=== PATIENT | male | born 1960 | race Caucasian/White ===

== ENCOUNTER 2021-09-27 01:15 | Day surgery (SDC) | payer BC, SELFPAY ==
[2021-09-14 15:12] VITALS: BMI 25.1
[2021-09-27 08:14] VITALS: BP 122/76; PULSE 79; RESP 18; TEMP 36.7; O2SAT 100; BMI 25.3
[2021-09-27] MEDS: LACTATED RINGERS 1,000 ML 150 ML IV CONT (08:32)
--- NOTE | 2021-09-27 08:54 | P.HP_ITS ---
History of Present Illness History of Present Illness Consent: Risks, benefits, and alternatives have been discussed and questions answered. Patient agrees to proceed with procedure. Chief complaint: neoplasm screening Narrative: Declan Ravi is a 61 year old male Referred for colon cancer screening Review of Systems Review of Systems: All systems reviewed & are unremarkable except as noted in HPI and below [facility] Social History Social History Smoking status: Never smoker Substance use: never Substance use type: does not use Living arrangements: with family Gender identity (if verbalized by the patient): Male Spiritual care concerns: No Meds Home Medications and Allergies Home Medications Medication Instructions Recorded Confirmed Type atorvastatin 5 mg PO DAILY 09/14/21 09/27/21 History Allergies Allergy/AdvReac Type Severity Reaction Status Date / Time No Known Allergies Allergy Mild Verified 09/27/21 08:22 Vital Signs Vital Signs - 24 hr 09/27/21 08:14 Temperature 36.7 C Pulse Rate 79 Respiratory Rate 18 Blood Pressure 122/76 Pulse Oximetry 100 Exam Resp: Auscultation: clear to auscultation bilaterally Cardio: Rate: regular rate Rhythm: regular rhythm GI: GI Palp: Yes Soft to palpation and No Tenderness to palpation present (GI) Assessment and Plan Assessment and plan (1) Colon cancer screening: Code(s): Z12.11 - Encounter for screening for malignant neoplasm of colon Status: Acute Assessment and Plan: Colonoscopy with possible biopsy or polypectomy or cautery or injection of substances.
--- NOTE | 2021-09-27 09:02 | WPDANESEPPF ---
Anes - Initial Pre Proc Eval Procedure: Operation Date: 09/27/21 09:30 Proposed Procedures p Screening Colonoscopy - Lavell Ramon MD Date/Time: 09/27/21 09:02 Surgeon: Lavell Ramon MD Pre Op Diagnosis: neoplasm screening Patient Data Age: 61 Gender: M Height: 1.83 m Weight: 84.8 kg Last Vital Signs Temp 36.7 C 09/27/21 08:14 Pulse 79 09/27/21 08:14 Resp 18 09/27/21 08:14 BP 122/76 09/27/21 08:14 Pulse Ox 100 09/27/21 08:14 Allergies Allergy/AdvReac Type Severity Reaction Status Date / Time No Known Allergies Allergy Mild Verified 09/27/21 08:22 Home Medications Medication Instructions Recorded Confirmed Type atorvastatin 5 mg PO DAILY 09/14/21 09/27/21 History Patient hx anesthesia problems: none Family hx anesthesia problems: none Results Review: All pre-operative results and documents have been reviewed as part of the pre-operative evaluation. [facility] Past Medical History Medical History Hypertension Social History Social History Smoking status: Never smoker Substance use: never Substance use type: does not use Living arrangements: with family Gender identity (if verbalized by the patient): Male Spiritual care concerns: No Anes - Eval Final PreProcedure Day of Procedure 09/27/21 09:02 Patient weight: normal Heart: regular rate and rhythm Lungs: clear to auscultation Airway: Mallampati scale class II Neurological: alert and oriented Last oral intake: >/= 8 hours ASA classification: II Emergent: no Anesthetic plan: proceed Anesthesia type and monitoring: general GIVS and standard monitoring Results Review: All pre-operative results and documents have been reviewed as part of the pre-operative evaluation. Informed Consent: The patient's anesthetic plan and its attendant risks and benefits were discussed with the patient/family/POA. Questions were solicited and answers provided to the satisfaction of the patient/family/POA.
[2021-09-27 09:43] VITALS: BP 100/66; PULSE 60; RESP 14; O2SAT 99
[2021-09-27 09:53] VITALS: BP 102/61; PULSE 60; RESP 14; O2SAT 100
[2021-09-27 10:03] VITALS: BP 115/74; PULSE 60; RESP 19; O2SAT 100
== END 2021-09-27 10:12 | disposition home or self-care (01) ==
PROVIDERS: PCP Family Medicine; Visit Provider Internal Medicine Gastroenterology
PROC: 0DJD8ZZ Inspection of Lower Intestinal Tract, Via Natural or Artificial Opening Endoscopic (ICD-10-PCS; CPT 45378; principal; 2021-09-27 09:30)
DX: Z12.11 Encounter for screening for malignant neoplasm of colon (principal); K57.30 Diverticulosis of large intestine without perforation or abscess without bleeding
CPT/HCPCS: 45378; J2704; J7120

== ENCOUNTER 2023-08-17 23:30 | Observation (INO) | payer BC, SELFPAY ==
--- NOTE | ~2023-08-17 | XR_ITS ---
EXAMINATION: XR chest 1V portable Exam Date/Time: 08/18/2023 16:06 VAULT TELLER HISTORY: Atrial fibrillation Comparison: 03/05/2013. RESULT: Lines, tubes, and devices: None. Lungs and pleura: Streaky bibasilar scar/atelectasis, otherwise clear. Cardiomediastinal silhouette: Stable. Other: No acute osseous or upper abdominal finding. IMPRESSION: No acute cardiopulmonary process. Reviewed, dictated and finalized at location K. T TELLER
[2023-08-17 23:33] VITALS: BP 140/88; PULSE 92; RESP 16; TEMP 36.4; O2SAT 100
--- NOTE | 2023-08-17 23:37 | ECG_ITS ---
Measurements Intervals [place] Rate: 131 P: ME: 0 QRS: 75 QRSD: 126 T: 30 QT: 315 QTc: 466 Interpretive Statements ATRIAL FIBRILLATION WITH RAPID VENTRICULAR RESPONSE POSSIBLE RIGHT VENTRICULAR CONDUCTION DELAY [RSR (QR) IN V1/V2] ABNORMAL ECG NO PREVIOUS ECG AVAILABLE FOR COMPARISON Electronically Signed On 08-18-2023 18:17:58 STRUCTURAL STEEL WORKER HELPER by Anuj Guzmán M.D.
[2023-08-18] VITALS (42 sets, daily range): BP systolic 96–176; BP diastolic 60–143; PULSE 53–147; RESP 11–25; TEMP 36.7–37.6; O2SAT 95–100; BMI 24.7
[2023-08-18 00:01] LABS: Basophils Absolute Auto 0.1 K/mm3 (0.0-0.1); Basophils Percent Auto 0.6 % (0.2-1.2); Eosinophils Absolute Auto 0.2 K/mm3 (0-0.3); Eosinophils Percent Auto 2.7 % (0-4.4); Hematocrit 41.6 % (42.0-52.0); Hemoglobin 13.9 g/dL (14.0-18.0); Immature Granulocyte Absolute 0.01 K/mm3 (0.00-0.031); Immature Granulocyte Percent A 0.1 % (0-0.5); Lymphocytes Absolute Auto 2.61 K/mm3 (0.9-3.2); Lymphocytes Percent Auto 33.5 % (18.3-44.2); Mean Corpuscular HGB Conc 33.4 g/dl (32-36); Mean Corpuscular Hemoglobin 29.6 pg (26-34); Mean Corpuscular Volume 88.7 fl (80-100); Mean Platelet Volume 10.7 fl (7.4-10.4); Monocytes Absolute Auto 0.9 K/mm3 (0.1-0.6); Monocytes Percent Auto 11.2 % (2.6-8.5); Neutrophils Absolute Auto 4.1 K/mm3 (1.3-6.7); Neutrophils Percent Auto 51.9 % (45.5-73.1); Platelet Count Result 220 k/mm3 (150-375); Red Blood Count 4.69 M/mm3 (4.6-6.20); Red Cell Distribution Width 13.5 % (11.5-14.5); White Blood Count 7.8 K/mm3 (4.5-10.0)
[2023-08-18] MEDS: SODIUM CHLORIDE 0.9% IV 2,000 ML 999 ML IV CONT (00:13)
[2023-08-18] MEDS: dilTIAZem HCl INJ 25 MG/5 ML VIAL 10 MG IV PUSH ×2 (00:14→01:25)
[2023-08-18 00:16] LABS: Alanine Aminotransferase 34 U/L (6-50); Albumin Level 4.4 g/dL (3.5-5.1); Alkaline Phosphatase 73 U/L (38-126); Anion Gap 6 mmol/L (8-16); Aspartate Amino Transferase 37 U/L (17-59); Bilirubin,Total 0.4 mg/dL (0.2-1.3); Blood Urea Nitrogen 16 mg/dL (9-20); Calcium 9.3 mg/dL (8.4-10.2); Carbon Dioxide 31 mmol/L (22-30); Chloride 105 mmol/L (98-107); Estimated CRCL calculation 82 ml/min; Estimated Glomerular Filt Rate > 60; Glucose 85 mg/dL (65-110); Lipase 166 U/L (23-300); Potassium 3.9 mmol/L (3.4-5.0); Prothrombin Time 13.5 Seconds (11.1-14.7); Sodium 142 mmol/L (137-145)
[2023-08-18 00:17] LABS: Partial Thromboplastin Time 27.9 SECONDS (22.3-36.8)
[2023-08-18 00:28] LABS: Troponin I < 0.012 ng/mL (0.000-0.034)
--- NOTE | 2023-08-18 00:30 | ED.GENADULT ---
HPI - General Adult General Chief complaint: Arrhythmia/Palpitations Stated complaint: palpitations Time Seen by Provider: 08/17/23 23:53 History of Present Illness HPI narrative: This is a healthy 63-year-old male presenting ED with chief complaint of palpitations. Patient says they been on off for the last 10 days but became acutely worse tonight. He says he feels like he has 2 heart is beating in his chest. He did have 1 episode of dizziness but has no other complaints. No chest pain difficulty breathing lower extremity edema, fever chills nausea vomiting diarrhea. Related Data Home Medications Medication Instructions Recorded Confirmed atorvastatin 10 mg tablet 5 mg PO DAILY 09/14/21 09/27/21 Allergies Allergy/AdvReac Type Severity Reaction Status Date / Time No Known Allergies Allergy Mild Verified 09/27/21 08:22 [facility] Social History Social History Smoking status: Never smoker Substance use: never Substance use type: does not use Living arrangements: with family Gender identity (if verbalized by the patient): Male Spiritual care concerns: No Exam Narrative: APPEARANCE: No apparent distress. Head: atraumatic. EYES: EOMI, NOSE: Atraumatic NECK: Trachea midline RESPIRATORY: No increased rate of breathing , clear to auscultation CARDIOVASCULAR: irregular, tachycardic, no edema ABDOMINAL: Non-distended MUSCULOSKELETAl: No obvious deformities NEURO: Alert. Moving 4/4 extremities SKIN:: Warm, dry. Normal color PSYCHIATRIC: Normal affect Course Vital Signs Vital signs: Vital Signs Temperature 97.6 F 08/17/23 23:33 Pulse Rate 92 08/17/23 23:33 Respiratory Rate 16 08/17/23 23:33 Blood Pressure 140/88 08/17/23 23:33 Pulse Oximetry 100 08/17/23 23:33 Oxygen Delivery Room Air 08/17/23 23:33 Temperature 97.6 F 08/17/23 23:33 Pulse Rate 134 H 08/18/23 02:38 Respiratory Rate 20 08/18/23 02:22 Blood Pressure 108/74 08/18/23 02:38 Pulse Oximetry 99 08/18/23 02:22 Oxygen Delivery Room Air 08/17/23 23:33 Medical Decision Making MDM Narrative Medical decision making narrative: -Course: 63-year-old male presenting with palpitations. Finding AFib with RVR. Given 10 mg diltiazem x2 and started on diltiazem drip. CHADSVASC 0. Given aspirin. Patient will be admitted to the hospital for further management KATHE<sub>2</sub>DS<sub>2</sub>-VASc Score for Atrial Fibrillation Stroke Risk from [employer] on 08/18/2023 All calculations should be rechecked by clinician prior to use RESULT SUMMARY: INPUTS: Age ?> 0 = <65 Sex ?> 0 = Male CHF history ?> 0 = No Hypertension history ?> 0 = No Stroke/TIA/thromboembolism history ?> 0 = No Vascular disease history (prior RI, peripheral artery disease, or aortic plaque) ?> 0 = No Diabetes history ?> 0 = No -DDX includes but is not limited to: paroxysmal AFib, SVT, anxiety -Co-morbidities complicating care: none -Social determinants of health: 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 Independent EKG interpretation: Rhythm a-fib, Rate [131], [place] -[normal], [place] -none, QRS [narrow], QTC [normal], T waves -[negative for concerning inversions], ST Segments - [Negative for concerning elevations] Final interpretations: AFib -Interventions: 2 L normal saline, 10 diltiazem mg x2, Diltiazem drip, 325 aspirin -Shared decision making / Disposition: Admitted Vital Signs Vital Signs: Vital Signs Temperature 97.6 F 08/17/23 23:33 Pulse Rate 92 08/17/23 23:33 Respiratory Rate 16 08/17/23 23:33 Blood Pressure 140/88 08/17/23 23:33 Pulse Oximetry 100 08/17/23 23:33 Oxygen Delivery Room Air 08/17/23 23:33 Temperature 97.6 F 08/17/23 23:33 Pulse Rate 134 H 08/18/23 02:38 Respiratory Rate 20 08/18/23 02:22 Blood Pressure 108/74 08/18/23 02:38 Pulse Oximetry 99 08/18/23 02:22
[2023-08-18] MEDS: dilTIAZem 100 MG/100 ML 100 MG/100 ML BAG IV CONT (01:48)
--- NOTE | 2023-08-18 03:03 | PC.NURSE ---
Report received from RAYNA Malloy. Assumed care of patient at this time.
[2023-08-18] MEDS: ASPIRIN 81 MG CHEWABLE TABLET 324 MG PO (03:05)
[2023-08-18 03:29] LABS: Troponin I < 0.012 ng/mL (0.000-0.034)
--- NOTE | 2023-08-18 04:10 | PC.NURSE ---
This patient, Declan Ravi, was admitted to IMU status, and placed in Intensive Care Unit-5. Patient/family oriented to hospital policies and general routines including ID bracelet, bed and alarms, visiting hours, pain management, procedures, bathroom and other care routines, personal items, smoking policy, room service/diet, and visiting hours. Valuables list has been completed. Information on how to activate the Rapid Response Team has been discussed. Patient/Family are encouraged to report perceived risks to care and to ask questions if they do not understand what they are told or what they should do.
--- NOTE | 2023-08-18 04:33 | PM.IMHP ---
H&P: HPI History of Present Illness Date/Time: 08/18/23 04:33 Chief Complaint: Palpitations. This is a 63-year-old male patient with past medical history of hyperlipidemia who came to the emergency room complaining of palpitations off and on for last 2 weeks. Patient became acutely worse tonight.. He felt like his heart is beating in his chest and had 1 episode of dizziness. Patient is awake alert not in acute distress. Denies any fever chills chest pain cough shortness of bread nausea vomiting diarrhea dysuria muscle and joint pains. Vital signs in the emergency room was stable except for pulse of 134 beats per minute. CBC CMP were mainly in rate. Troponin 14 unremarkable. Lipase of unremarkable. EKG showed atrial fibrillation with rapid ventricular rate. Patient was started on Cardizem drip in the emergency room. Review of Systems Review of Systems: A 12 point review of system is done and is only positive what is dictated in the history of present illness. [facility] Social History Social History Smoking status: Never smoker Substance use: never Substance use type: does not use Living arrangements: with family Gender identity (if verbalized by the patient): Male Spiritual care concerns: No Meds Home Medications and Allergies Home Medications Medication Instructions Recorded Confirmed Type atorvastatin 10 mg tablet 5 mg PO DAILY 09/14/21 08/18/23 History Allergies Allergy/AdvReac Type Severity Reaction Status Date / Time No Known Allergies Allergy Mild Verified 09/27/21 08:22 Vital Signs Vital Signs - 24 hr 08/17/23 23:33 08/18/23 00:06 08/18/23 00:52 Temperature 97.6 F Pulse Rate 92 121 H 130 H Respiratory Rate 16 19 18 Blood Pressure 140/88 128/95 H 132/85 Pulse Oximetry 100 99 99 Oxygen Delivery Room Air 08/18/23 01:29 08/18/23 01:48 08/18/23 02:09 Temperature Pulse Rate 137 H 125 H 126 H Respiratory Rate 18 Blood Pressure 146/84 H 130/83 132/86 Pulse Oximetry 99 Oxygen Delivery 08/18/23 02:22 08/18/23 02:38 08/18/23 03:02 Temperature Pulse Rate 93 134 H 95 Respiratory Rate 20 17 Blood Pressure 118/77 108/74 122/88 Pulse Oximetry 99 100 Oxygen Delivery 08/18/23 00:20 08/18/23 00:30 08/18/23 00:45 Temperature Pulse Rate 127 H 125 H 72 Respiratory Rate 20 19 15 Blood Pressure Pulse Oximetry 98 99 99 Oxygen Delivery 08/18/23 01:00 08/18/23 01:15 08/18/23 01:17 Temperature Pulse Rate 122 H 87 95 Respiratory Rate 25 H 16 17 Blood Pressure 146/84 H Pulse Oximetry 100 100 Oxygen Delivery 08/18/23 01:32 08/18/23 02:26 08/18/23 03:16 Temperature Pulse Rate 147 H 120 H 137 H Respiratory Rate 16 14 12 Blood Pressure 96/60 L Pulse Oximetry 97 98 99 Oxygen Delivery 08/18/23 03:17 08/18/23 03:30 08/18/23 03:31 Temperature Pulse Rate 124 H 121 H 123 H Respiratory Rate 15 13 11 L Blood Pressure 108/82 Pulse Oximetry 99 99 100 Oxygen Delivery 08/18/23 03:45 08/18/23 03:46 08/18/23 03:58 Temperature Pulse Rate 97 124 H 107 H Respiratory Rate 12 13 19 Blood Pressure 123/78 123/78 Pulse Oximetry 95 99 97 Oxygen Delivery Exam Const: Other: Awake alert not in any acute distress. HENMT: Other: Normocephalic atraumatic. Neck: Other: Supple no thyromegaly. Resp: Other: Clear to auscultation bilaterally. Cardio: Other: S1-S2 regular no murmur heard. GI: Other: Soft nontender good bowel sounds. Neuro: Other: No focal deficit. Extrem: Other: No pedal edema. H&P: Results Labs Labs: Short CBC 08/17/23 Range/Units 23:54 WBC 7.8 (4.5-10.0) K/mm3 Hgb 13.9 L (14.0-18.0) g/dL Hct 41.6 L (42.0-52.0) % Plt Count 220 (150-375) k/mm3 [facility] 08/17/23 23:54 Sodium 142 Potassium 3.9 Chloride 105 Carbon Dioxide 31 H BUN 16 Cre
[2023-08-18 07:21] LABS: Troponin I < 0.012 ng/mL (0.000-0.034)
[2023-08-18] MEDS: ASPIRIN 325 MG TABLET PO (08:18)
[2023-08-18] MEDS: METOPROLOL TARTRATE 25 MG TABLET PO ×3 (08:18→23:05)
[2023-08-18] MEDS: ENOXAPARIN 100 MG/ML SYRINGE 85 MG SUB-Q ×2 (08:20→20:03)
[2023-08-18] MEDS: dilTIAZem 100 MG/100 ML 100 MG/100 ML BAG 15 MG IV CONT (08:20)
--- NOTE | 2023-08-18 10:02 | PM.CNCAR ---
Assessment and Plan Assessment and plan (1) Atrial fibrillation, new onset: Code(s): I48.91 - Unspecified atrial fibrillation Status: Acute Assessment and Plan: Patient presents with symptomatic new onset atrial fibrillation with RVR refractory to diltiazem at 15 milligrams/hour. Addition of oral metoprolol resulted in intermittent methodist of sinus rhythm, however, with periodic bradycardia in junctional beats with heart rates in the 40s to 60s. Patient asymptomatic and hemodynamically stable. We discussed concerns in this regard and to avoid overly aggressive reduction heart rate and to monitor conduction closely. Electrolytes stable, TSH normal. Discussed plan of care and management options at great length. At this time, as he is now currently paroxysmal AFib with RVR with intermittent sinus rhythm medical management will be our focus attempt to restore and maintain sinus rhythm. We discussed various options and concerns to avoid bradycardia particular concomitant AV rafiq blocking agents with diltiazem and oral metoprolol. After much discussion I have advised reduction in diltiazem with aim to discontinue and observe tolerance in this regard with further uptitration of the dose of metoprolol as he tolerates. Explained the need for systemic anticoagulation for least 30 days if elective cardioversion warranted. GABRIELLA guidance with cardioversion if deemed warranted if sustained AFib with RVR refractory to medical therapy observed moving forward. A great length we discussed pathophysiology associated atrial fibrillation including risk for tachycardia induced cardiomyopathy if heart rate remains uncontrolled for sustained period of time, embolic stroke risk. CHADS2 Vasc score 0 but when he turns 64 will be 1 as his current medical conditions dictate at present. As such, no antiplatelet or anticoagulant therapy warranted or aspirin 81 mg daily. I would recommend initiation of aspirin 81 mg daily for the time being particularly as he turns 64 in 6 months. We discussed referral as an outpatient electrophysiology for considerations for AFib ablation as appropriate. Discussed Veress AV rafiq blocking agents and or antiarrhythmic therapy intent to restore sinus rhythm as tolerated. He would require an ischemic workup prior to initiation of class 1 C agents. Will avoid amiodarone particular added he does not have a particular need at this time. Sotalol and option but did given potential for tachy-alfredo at this time on dual AV rafiq blocking agents I would not be in favor initiation of additional antiarrhythmic therapy out of concern for precipitating higher grade AV block and or symptomatic bradycardia. Patient and his verbalized understanding and agreed with plan of care. All questions answered to their satisfaction. We discussed at great length balance a potential life-threatening cashier courtesy booth bleeding complication particular injury or fall versus embolic stroke risk reduction with antiplatelet versus systemic anticoagulation. For now, will continue enoxaparin 1 milligram/kilogram subcutaneous q.12 hours in the off chance further intervention such as cardioversion warranted. However, I suspect we will be able to discontinue in favor of DVT dosing in a.m.. Additional secondary reversible treatable causes have not been identified thus far. No recent illnesses, CHF, anginal symptoms or electrolyte imbalance. TSH normal. He does not report symptoms suggestive of clinically significant MENDY. Apnea link overnight for screening reasonable. -check chest x-ray. -2D echocardiogram in a.m. to assess LV size/function, wall motion abnormalities, LV wall thickness, valve pathology, pulmonary pressures. Recommendation to follow after review. -continue telemetry overnight. Continue IMU status. -repeat 12 lead ECG. (2) Tachycardia-bradycardia syndrome: Code(s): I49.5 - Sick sinus syndrome Status: Acute Assessment and Plan: If further br
[2023-08-18] MEDS: dilTIAZem 100 MG/100 ML 100 MG/100 ML BAG 10 MG IV CONT (15:16)
[2023-08-19] VITALS (13 sets, daily range): BP systolic 94–136; BP diastolic 67–88; PULSE 60–88; RESP 16–18; TEMP 36.5–37.1; O2SAT 93–100
--- NOTE | 2023-08-19 | ECHO_ITS ---
Patient Info Name: Declan Ravi Age: 63 years : 1960 Gender: Male Ht: 73 in Wt: 187 lbs BSA: 2.10 m2 HR: 59 bpm BP: 113 / 72 mmHg Heart Rhythm: Sinus Rhythm Technical Quality: Fair Exam Date: 08/19/2023 8:04 AM Exam Location: Echo Lab Patient Status: Inpatient Admit Date: 08/18/2023 Staff Ordering Physician: Anuj Guzmán MD Flat Knitter Helper: Attending Provider: Jesse Camejo MD Referring Physician: Arielle ISSA; Exam Type: CA echo doppler color flow Study Info Indications I48.0 - Paroxysmal atrial fibrillation Complete two-dimensional, color flow and Doppler transthoracic echocardiogram is performed. Summary 1. Complete two-dimensional, color flow and Doppler transthoracic echocardiogram is performed. 2. Normal left ventricular size and systolic contractility. 3. Left ventricular false cord incidentally noted. 4. Modest enlargement of the aortic root at 3.5 cm. Left Ventricle Left ventricular chamber dimension is normal. Left ventricular systolic function is normal, estimated at 55-60%. The left ventricular diastolic function is normal. Right Ventricle Right ventricular chamber dimension is normal. Left Atria Left atrial chamber dimension is normal. Right Atria Right atrial chamber dimension is normal. Aortic Valve The aortic valve is normal. Pulmonic Valve The pulmonic valve is not well visualized. Mitral Valve The mitral valve has normal leaflets. Tricuspid Valve The tricuspid valve leaflets are normal. Pericardium/Pleural The pericardium appears normal. Aorta The prox ascending aorta size is mildly dilated. Left Ventricular Outflow Tract Name Value Normal LVOT 2D LVOT Diameter 2.1 cm LVOT Doppler LVOT Peak Gradient 3 mmHg LVOT Mean Gradient 2 mmHg LVOT VTI 20 cm LVOT VTI/AV VTI Ratio 0.8 LVOT Stroke Volume 69 ml LVOT CO 3.8 l/min LVOT CI 1.8 l/min/m2 Pulmonic Valve Name Value Normal PV Doppler PV Peak Gradient 2 mmHg Mitral Valve Name Value Normal MV Doppler MV Decel [place] 327 cm/s2 MV PHT 51 ms MV Area (PHT) 4.4 cm2 4.0-5.0 MV Diastolic Function MV E Peak Velocity 57 cm/s MV A Peak Velocity 60 cm/s MV E/A 1.0 MV Decel Time 174 ms
[2023-08-19] MEDS: METOPROLOL TARTRATE 25 MG TABLET PO ×2 (06:17→14:36)
[2023-08-19] MEDS: ENOXAPARIN 100 MG/ML SYRINGE 85 MG SUB-Q (08:44)
[2023-08-19] MEDS: ASPIRIN 325 MG TABLET PO (08:44)
--- NOTE | 2023-08-19 09:45 | ECG_ITS ---
Measurements Intervals [place] Rate: 63 P: 55 NE: 189 QRS: 67 QRSD: 110 T: 43 QT: 421 QTc: 433 Interpretive Statements SINUS RHYTHM WITHIN NORMAL LIMITS COMPARED TO ECG 08/17/2023 23:42:01 SINUS RHYTHM REPLACES ATRIAL FIBRILLATION Electronically Signed On 08-19-2023 18:21:17 SAMPLE CHECKER by Declan Verdugo M.D.
--- NOTE | 2023-08-19 09:46 | PM.PNCARD ---
Progress Note: A&P Assessment and Plan (1) Atrial fibrillation, new onset: Code(s): I48.91 - Unspecified atrial fibrillation Status: Acute Assessment and Plan: Patient presents with symptomatic new onset atrial fibrillation with RVR. Converted to sinus rhythm spontaneously. Continue metoprolol, but will shift to Toprol XL for dosing convenience CHADS2 Vasc score 0 but when he turns 64 will be 1 as his current medical conditions dictate at present. Aspirin 81 mg daily has been recommended as he turns 64 in 6 months. 2D echocardiogram is pending. Further recommendations to follow. Anticipate discharge today Will arrange for follow up in our office (2) Tachycardia-bradycardia syndrome: Code(s): I49.5 - Sick sinus syndrome Status: Acute Assessment and Plan: No further significant bradycardia or junctional rhythm noted. (3) Hyperlipidemia: Qualifiers: Hyperlipidemia type: mixed hyperlipidemia Qualified Code(s): E78.2 - Mixed hyperlipidemia Code(s): E78.5 - Hyperlipidemia, unspecified Status: Acute Assessment and Plan: Resume atorvastatin 10 mg daily. Patient states he takes an alternating regimen to 5 mg every other day with 10 mg. Subjective Date/time seen: 08/19/23 09:46 Interval history: Cardiology follow up for Afib Remains in sinus rhythm on telemetry with no bradycardia or recurrence of atrial fibrillation. He is feeling well today with no complaints. Repeat EKG and echo are pending. Review of Systems Review of Systems: Remainder of the review of systems is otherwise negative aside from that noted in the HPI. All systems reviewed & are unremarkable except as noted in HPI and below Constitutional: Constitutional: Reports as per HPI and Reports no additional constitutional complaints Eyes: Eyes: Reports as per HPI and Reports no additional eye complaints ENT: Reports system reviewed and no additional complaints, except as documented and Reports as per HPI Cardiovascular: Cardiovascular: Reports as per HPI and Reports no additional cardiovascular complaints Respiratory: Respiratory: Reports as per HPI and Reports no additional respiratory complaints Gastrointestinal: Gastrointestinal: Reports as per HPI and Reports no additional gastrointestinal complaints Genitourinary: Genitourinary: Reports no additional male genitourinary complaints and Reports as per HPI Musculoskeletal: Musculoskeletal: Reports no additional musculoskeletal complaints and Reports as per HPI Integumentary/Breasts: Skin/Breast: Reports system reviewed and no additional complaints, except as docu and Reports as per HPI Neurologic: Reports system reviewed and no additional complaints, except as documented and Reports as per HPI Psychiatric: Psychiatric: Reports no additional psychiatric complaints and Reports as per HPI Endocrine: Endocrine: Reports no additional endocrine complaints and Reports as per HPI Hematologic/Lymphatic: Hematologic/Lymphatic: Reports no additional hematologic/lymphatic complaints and Reports as per HPI Allergic/Immunologic: Allergic/Immunologic: Reports no additional allergic/immunologic complaints and Reports as per HPI Exam Const: General: comfortable, no acute distress, alert and awake Orientation/consciousness: patient oriented x3 HENMT: Head: normal to inspection Eyes: General: appearance normal, both eyes and all related structures Pupils: Equal, round and reactive pupils present Neck: Neck: normal visual inspection, supple and no JVD Carotids: normal carotid upstroke Resp: Effort & Inspection: normal respiratory effort Auscultation: clear to auscultation bilaterally Cardio: Rate: regular rate Rhythm: regular rhythm Heart sounds: S1 normal heart sound present, S2 normal heart sound present and no murmurs GI: Auscultation: normal bowel sounds Skin: General skin exam: normal color Neuro: General: patient oriented
--- NOTE | 2023-08-19 16:51 | PM.DS ---
DS: Admitting Diagnosis Discharge Date August 19, 2023 Admitting Diagnosis Palpitation DS: Discharge Diagnosis Discharge Diagnosis (1) Tachycardia-bradycardia syndrome: Code(s): I49.5 - Sick sinus syndrome Status: Acute (2) Atrial fibrillation, new onset: Code(s): I48.91 - Unspecified atrial fibrillation Status: Acute (3) Hyperlipidemia: Qualifiers: Hyperlipidemia type: mixed hyperlipidemia Qualified Code(s): E78.2 - Mixed hyperlipidemia Code(s): E78.5 - Hyperlipidemia, unspecified Status: Acute DS: Summary Hospital Course Hospital Course: This is a pleasant 63-year-old male with a history of hyperlipidemia who presents with palpitations for the last couple of weeks. They would mostly resolve on his own. The patient is independent, lives with in goes out to dinner multiple times a week. Upon presentation at [facility] he was found to be in AFib rhythm with rapid ventricular rate to the 120s and 130s. He was started on diltiazem GTT at 15 milligrams/hour. He was successfully weaned off of that and transitioned to metoprolol 25 mg p.o. t.i.d.. His palpitations resolved. Troponins negative x3 in no acute ischemia identified on EKG. He did have evidence of tachy-alfredo/sick sinus syndrome with intermittent fluctuation of AFib RVR to sinus bradycardia. However, he did convert to normal sinus without further issue. Patient is discharged home in stable condition on 08/19 with a new prescription for metoprolol succinate 75 mg p.o. q.day and a baby aspirin daily. He turns 64 very soon and will have a chads Vasc 2 score of 1. TSH 3.2 within normal limits. Surface echocardiogram conducted and will be followed up in the outpatient setting with Cardiology. The patient was full code during his admission. Time Spent with Patient Time attestation: Total time spent providing and/or coordinating discharge services: Exam Const: General: cooperative and no acute distress Resp: Effort & Inspection: normal respiratory effort Auscultation: clear to auscultation bilaterally Cardio: Rate: regular rate Rhythm: regular rhythm Heart sounds: S1 normal heart sound present and S2 normal heart sound present GI: GI Palp: No abdominal tenderness Auscultation: normal bowel sounds Discharge Plan Discharge Attending physician on discharge: Treva Chandler Consulting providers: Anuj Guzmán Discharging Clinician: Treva Chandler Patient Disposition: Home, Self-Care Activity: october shower Diet: regular Patient Instructions: Antibiotic Form, Metoprolol (By mouth), A-fib (Atrial Fibrillation) (DC) Stand Alone Forms: General Discharge Information Follow-up/Referrals: Richa Solis APN-C [Advanced Practice Nurse] - (09/18/23 at 10:00. Arrive at 9:45) Daniel,MD Atilio [Primary Care Provider] - 2 Weeks Discharge Medications: New metoprolol succinate [Toprol XL] 50 mg tablet extended release 24 hr 75 mg PO DAILY Qty: 60 0RF aspirin 81 mg capsule 81 mg PO DAILY Qty: 30 0RF Continued atorvastatin 10 mg Tablet 5 mg PO DAILY Rx Instructions: Take 10mg on saturday take 5mg on saturday Date of admission: 08/18/23 02:56 Primary Care Provider: DanielAtilio Admitting Provider: Jesse Camejo Attending physician on admission: Jesse Camejo Condition: Stable
== END 2023-08-19 17:21 | disposition home or self-care (01) ==
LOC: ANHED 08-18 02:57 → ANHICU 08-18 04:53
PROVIDERS: Internal Medicine Cardiovascular Disease; Admitting Provider Internal Medicine Infectious Disease; Emergency Provider Emergency Medicine; PCP Family Medicine; Visit Provider General Practice
DX: I48.91 Unspecified atrial fibrillation (principal); I49.5 Sick sinus syndrome; E78.5 Hyperlipidemia, unspecified
CPT/HCPCS: 36415; 71045; 80053; 83690; 84443; 84484; 85025; 85610; 85730; 93005; 93306; 96361; 96365; 96366; 96372; 96376; 99285; A9270; G0378; J1650; J7030

== ENCOUNTER 2023-12-18 08:28 | Outpatient (CLI) | payer BC, SELFPAY ==
--- NOTE | ~2023-12-18 | MR_ITS ---
EXAMINATION: MR knee RT wo con DATE: 12/18/2023 09:00 INDICATION: Right knee pain TECHNIQUE: Magnetic resonance imaging (MRI) of the right knee was performed without intravenous contr ast. Sequences included coronal PD-weighted FSE, coronal PD-weighted FS FSE, sagittal T2-weighted FS E, sagittal PD-weighted FS FSE and axial PD weighted fat saturated FSE. COMPARISON: None. FINDINGS: Medial compartment: Full or near full-thickness radial tear near the posterior root of the medial meniscus. There is incr eased intrasubstance signal in the more medial posterior horn which is not obviously contact the edna cular surface consistent with mucoid degeneration. There is deep chondral ulceration with underlying subarticular edema-like signal change along the medial two thirds of the anterior to central weightbe aring medial femoral condyle. Additional deep chondral ulceration with underlying subarticular edema- like signal change along the medial rim of the medial tibial plateau. Lateral compartment: Lateral meniscus is normal. Articular cartilage is normal. Patellofemoral compartment: Partial-thickness chondral fissuring at the patellar which involves greater than 50% the cartilage th ickness at the central and medial aspects of the medial patellar facet and at the inferolateral aspec t of the lateral patellar facet. Trochlear cartilage is normal. Ligaments and tendons: Anterior and posterior cruciate ligaments are normal. The medial collateral ligament and fibular deo ateral ligament complex are normal. The extensor mechanism is normal. The visualized medial and later al hamstring tendons as well as the iliotibial band are normal. Fluid: Moderate-sized knee joint effusion with prominent associated synovitis. There is also prominent synov itis in a moderate-sized Falk's cyst. No loose osteochondral bodies identified. Osseous/other: Bone alignment is normal. No fracture or pathologic marrow replacing process. Small enthesophytes at the anterior and posterior talofibular ligaments and proximal tibiofibular syndesmosis. IMPRESSION: 1. Radial tear near the posterior root of the medial meniscus. 2. Moderate osteoarthritis with extensive high-grade chondral malacia the medial compartment and mild patellofemoral osteoarthritis with moderate grade patellar chondromalacia. 3. Prominent diffuse synovitis associated with a moderate-sized knee joint effusion as well as in a m oderate-sized Falk's cyst. Reviewed, dictated and finalized at location B. IMPRESSION: 1. Radial tear near the posterior root of the medial meniscus. 2. Moderate osteoarthritis with extensive high-grade chondral malacia the media l compartment and mild patellofemoral osteoarthritis with moderate grade patell ar chondromalacia. 3. Prominent diffuse synovitis associated with a moderate-sized knee joint effu musa as well as in a moderate-sized Falk's cyst.
== END 2023-12-18 08:29 ==
LOC: MICIMG 08:30
PROVIDERS: PCP Orthopaedic Surgery Sports Medicine; Visit Provider Orthopaedic Surgery Sports Medicine
DX: S83.241A Other tear of medial meniscus, current injury, right knee, initial encounter (principal); X58.XXXA Exposure to other specified factors, initial encounter; M17.11 Unilateral primary osteoarthritis, right knee
CPT/HCPCS: 73721